=== PATIENT | female | born 1965 | race Hispanic/Latino ===

== ENCOUNTER 2019-04-29 13:30 | Observation (INO) | payer BC ==
[2019-04-29] MEDS ORDERED: AMBIEN PO PRN (13:51)
[2019-04-29] MEDS ORDERED: MORPHINE IV PRN (13:51)
[2019-04-29] MEDS ORDERED: SODIUM CHLORIDE FLUSH SYRINGE 10 ML IV PRN (13:51)
[2019-04-29] MEDS ORDERED: ZOFRAN IV PRN ×2 (13:51→22:37)
[2019-04-29] MEDS ORDERED: D5LR 1,000 ML IV SCH (15:00)
[2019-04-29] MEDS: ANCEF/NS 1 GM/50 ML 1 GM/50 ML BAG IV SCH ×2 (15:25→22:50)
[2019-04-29 15:39] LABS: Basophils % (Auto) 0.3 % (0.0-1.8); Eosinophils % (Auto) 0.2 % (0.0-4.3); Hemoglobin 13.4 gm/dl (10.1-14.3); Lymphocytes # (Auto) 1.1 K/mm3 (1.2-5.4); Lymphocytes % (Auto) 11.3 % (13.4-35.0); Mean Corpuscular HGB Conc 34 % (30-34); Mean Corpuscular Volume 95 fl (79-97); Platelet Count 252 K/mm3 (140-440); Red Cell Distribution Width 13.3 % (13.2-15.2)
[2019-04-29 15:58] LABS: Albumin 3.7 g/dL (3.9-5); Calcium 8.4 mg/dL (8.4-10.2)
[2019-04-29] MEDS: DILAUDID IV PRN ×2 (17:24→22:51)
[2019-04-29] MEDS: SODIUM CHLORIDE FLUSH SYRINGE 10 ML IV SCH (22:00)
[2019-04-29] MEDS ORDERED: SUBLIMAZE IV PRN (22:37)
[2019-04-30] MEDS: DILAUDID IV PRN (04:47)
[2019-04-30] MEDS: ANCEF/NS 1 GM/50 ML 1 GM/50 ML BAG IV SCH (05:18)
--- NOTE | 2019-04-30 06:54 | Anesthesia Day of Surgery ---
Anesthesia Day of Surgery - Day of Surgery Patient Examined: Yes Patient H&P Reviewed: Yes Patient is NPO: Yes
--- NOTE | 2019-04-30 06:56 | Anesthesia Consultation ---
Anesthesia Consult and Med Hx Date of service: 04/30/19 - Airway Anesthetic Teeth Evaluation: Good ROM Head & Neck: Adequate Mental/Hyoid Distance: Adequate Mallampati Class: Class I Intubation Access Assessment: Good - Pre-Operative Health Status ASA Pre-Surgery Classification: ASA2 Proposed Anesthetic Plan: General - Pulmonary Hx Asthma: No Hx Pneumonia: No - Cardiovascular System Hx Valvular Heart Disease: No (Had MVP and WPW years ago. Negative Cardiac W/U 6-7 years ago per pt) - Central Nervous System Hx Psychiatric Problems: No (Takes Effexor for hot flashes)
[2019-04-30] MEDS ORDERED: SUBLIMAZE IV PRN (06:57)
[2019-04-30] MEDS ORDERED: ZOFRAN IV PRN (06:57)
[2019-04-30] MEDS ORDERED: OMNIPAQUE 300 MG/50 ML (CATH LAB) IV ONE (07:26)
[2019-04-30] MEDS ORDERED: ROBINUL ONE (07:30)
[2019-04-30] MEDS ORDERED: ZOFRAN ONE (07:30)
[2019-04-30] MEDS ORDERED: XYLOCAINE MPF 2% ONE (07:30)
--- NOTE | 2019-04-30 07:55 | Post Operative Note ---
Date of procedure: 04/30/19 Pre-op diagnosis: renal colic Post-op diagnosis: same Findings: severe obst left Procedure: cyst rpg stent Anesthesia: GETA Surgeon: LUIS ALBERTO SUAREZ Estimated blood loss: none Pathology: none Condition: stable Disposition: PACU
--- NOTE | 2019-04-30 07:56 | Discharge Summary ---
Short Stay Discharge Plan Activity: other (home today no straining ) Weight Bearing Status: Full Weight Bearing Diet: regular Special Instructions: other (inc fluids ) Durable Medical Equipment Needed Upon Discharge: other (has j stent ) Follow up with: [facility] [Other] - 7 Days LUIS ALBERTO SUAREZ MD [Staff Physician] - 7 Days
--- NOTE | 2019-04-30 09:09 | Post Anesthesia Evaluation ---
- Post Anesthesia Evaluation Patient Participated: Yes Airway Patent: Yes Stable Respiratory Function: Yes Nausea/Vomiting: No Temp > 96.8F: Yes Pain Manageable: Yes Adequeate Hydration: Yes Anesthesia Complications: No Block Receding Appropriately: Not Applicable Patient on Ventilator: No
--- NOTE | 2019-04-30 09:44 | Operative Report ---
PREOPERATIVE DIAGNOSES: Severe left flank pain, left ureteropelvic junction stone, severe hydronephrosis. POSTOPERATIVE DIAGNOSES: Severe left flank pain, left ureteropelvic junction stone, severe hydronephrosis. PROCEDURES: Cystoscopy, stone transposition, left J stent. SURGEON: J Carlos Gardner M.D. ANESTHESIA: General. FINDINGS: This is a woman who came yesterday afternoon with severe agonizing pain. She was admitted to the hospital, kept n.p.o. and now brought for treatment. DESCRIPTION OF PROCEDURE: The patient was brought to the operating room and placed on the operating table. Following induction of anesthesia, placed in lithotomy position, prepped and draped in usual sterile fashion. Cystourethroscopy showed no bladder lesions. Retrograde showed a stone stuck at the UPJ. With the retrograde, we pushed it up into the kidney and a 5-Scottish double J 24 cm coiled in the kidney and bladder. The patient tolerated the procedure well. She needs followup lithotripsy and stent removal. No string was left because the stent will be in for at least a few weeks, brought to recovery in stable condition. JOB# [id number] MARLON/YARITZA
[2019-04-30] MEDS: SODIUM CHLORIDE FLUSH SYRINGE 10 ML IV SCH (09:52)
[2019-05-02 08:04] VITALS: BP 115/60
--- NOTE | 2019-05-02 08:12 | Fluoroscopy Report ---
FLUOROSCOPY RETROGRADE UROGRAPHY: HISTORY: Hydronephrosis with left renal and ureteral stones. FINDINGS: Fluoroscopy was provided by radiology during retrograde urography by the urologist. 3 fluoroscopic images were captured. The images demonstrate placement of a left ureteral stent with good drainage of the left collecting system on the final image. No images of the right collecting system are presented. Please correlate with procedural report as needed. IMPRESSION: Left ureteral stent placement.
== END 2019-04-30 11:15 | disposition home or self-care (01) ==
LOC: UNDOADMIN 13:30 → 3A 13:30 → PREINTOOBSV 13:50 → 3B-SURG 14:25
PROVIDERS: ADMIT Urology; ATTEND Urology
DX: N13.2 Hydronephrosis with renal and ureteral calculous obstruction (principal); N23 Unspecified renal colic
CPT/HCPCS: 36415; 52356; 80053; 85025; 96365; 96366; 96375; 96376; C1758; C1769; C2617; G0378; G0379; J0690; J1170; J2405; J7121; 74420; Q9967

== ENCOUNTER 2019-06-09 06:29 | Day surgery (SDC) | payer BC ==
[2019-06-09] MEDS ORDERED: NACL BACTERIOSTATIC INFILTRATI ONE (06:55)
[2019-06-09] MEDS ORDERED: VERSED IV NR (07:24)
[2019-06-09] MEDS ORDERED: LACTATED RINGERS 1,000 ML IV SCH (07:26)
[2019-06-09] MEDS ORDERED: ANCEF/STERILE WATER 2 GM/20 ML IV NR (08:00)
[2019-06-09] MEDS ORDERED: ANCEF/STERILE WATER 2 GM/20 ML 2 GM/20 ML SYRINGE IV NR (08:00)
--- NOTE | 2019-06-09 08:07 | Anesthesia Day of Surgery ---
Anesthesia Day of Surgery - Day of Surgery Patient Examined: Yes Patient H&P Reviewed: Yes Patient is NPO: Yes
--- NOTE | 2019-06-09 08:09 | Anesthesia Consultation ---
Anesthesia Consult and Med Hx Date of service: 06/09/19 - Airway Anesthetic Teeth Evaluation: Good, Crowns ROM Head & Neck: Adequate Mental/Hyoid Distance: Adequate Mallampati Class: Class II Intubation Access Assessment: Good - Pre-Operative Health Status ASA Pre-Surgery Classification: ASA2 Proposed Anesthetic Plan: General - Pulmonary Hx Smoking: No Hx Asthma: No Hx Pneumonia: No Hx Sleep Apnea: No (ALLA PRE SCREEN LOW RISK) - Cardiovascular System Hx Hypertension: No Hx Valvular Heart Disease: No (Had MVP and WPW years ago. Negative Cardiac W/U 6-7 years ago per pt) - Central Nervous System Hx Back Pain: Yes (NECK AND BACK PAIN) Hx Psychiatric Problems: No (Takes Effexor for hot flashes) - Hematic Hx Anemia: Yes (NOT RECENT) - Other Systems Hx Cancer: No - Additional Comments Anesthesia Medical History Comments: Had MSO4 in ER and states it doesn't work. Had ESWL a month ago at [facility]
[2019-06-09] MEDS ORDERED: ZOFRAN IV PRN (08:30)
[2019-06-09] MEDS ORDERED: SUBLIMAZE IV PRN (08:30)
[2019-06-09] MEDS ORDERED: SUBLIMAZE ONE (08:35)
[2019-06-09] MEDS ORDERED: DIPRIVAN 10 MG/ML IV ONE (08:35)
[2019-06-09] MEDS ORDERED: ZOFRAN ONE (09:00)
[2019-06-09] MEDS ORDERED: XYLOCAINE MPF 2% ONE (09:00)
--- NOTE | 2019-06-09 09:42 | Operative Report ---
PREOPERATIVE DIAGNOSIS: Left renal stone. POSTOPERATIVE DIAGNOSIS: Left renal stone. PROCEDURE: Second staged left lithotripsy. SURGEON: J Carlos Gardner M.D. ANESTHESIA: General. FINDINGS: This is a woman who had a UPJ stone. She was in severe pain, a stent was placed. She had one lithotripsy, still had significant fragments. She now presents for second stage lithotripsy, possible ureteroscopy. DESCRIPTION OF PROCEDURE: The patient was brought to lithotripsy and placed on the table. Stone was well seen. It looked to be quite soft. I had a conversation with the once again before I started ureteroscopy versus lithotripsy. At this point, we decided to do the less invasive and give a second stage lithotripsy. Stone fragmented quite well. There was excellent fragmentation up to 8 for only 100 shocks, mostly at 7. The patient tolerated the procedure well and brought to recovery room in stable condition. Family notified. JOB# [id number] MARLON/YARITZA
[2019-06-09 10:23] VITALS: BP 124/70
--- NOTE | 2019-06-09 11:20 | Post Operative Note ---
Date of procedure: 06/09/19 Pre-op diagnosis: l stones Post-op diagnosis: same Findings: as above Procedure: L eswl Anesthesia: STEW Surgeon: LUIS ALBERTO SUAREZ Estimated blood loss: none Pathology: none Condition: stable Disposition: PACU
--- NOTE | 2019-06-09 11:21 | Discharge Summary ---
Short Stay Discharge Plan Activity: other (no straining ) Weight Bearing Status: Full Weight Bearing Diet: regular Special Instructions: other (inc fluids ) Follow up with: PRIMARY CARE, [Primary Care Provider] - 7 Days LUIS ALBERTO SUAREZ MD [Staff Physician] - 7 Days Forms: [facility]
== END 2019-06-09 06:30 | disposition home or self-care (01) ==
LOC: OR 06:29
PROVIDERS: ATTEND Urology
DX: N13.2 Hydronephrosis with renal and ureteral calculous obstruction (principal); M19.90 Unspecified osteoarthritis, unspecified site; Z79.899 Other long term (current) drug therapy; Z98.890 Other specified postprocedural states; Z86.2 Personal history of diseases of the blood and blood-forming organs and certain disorders involving the immune mechanism
CPT/HCPCS: 50590; J0690; J2250; J2405; J2704; J3010; J7120